=== PATIENT | female | born 1965 | race Hispanic/Latino ===

== ENCOUNTER 2018-07-16 14:45 | Inpatient (IN) | payer OTHER ==
[2018-07-16] MEDS ORDERED: Morphine 4 MG/ML VIAL IVP ONE (15:50)
[2018-07-16] MEDS ORDERED: Morphine 4 MG/ML VIAL ONE (16:09)
[2018-07-16 16:18] LABS: BASO % 0.6 % (0.0-2.0); EOS # 0.1 K/uL (0.0-0.7); EOS % 1.1 % (0.0-4.0); HEMOGLOBIN 14.1 g/dL (12.0-16.0); LYMPH # 1.6 K/uL (1.0-4.3); LYMPH % 22.7 % (20.0-40.0); MEAN CELL VOLUME 83.6 fl (81.0-99.0); MEAN CORPUSCULAR HEMOGLOBIN 28.7 pg (27.0-31.0); MEAN CORPUSCULAR HGB CONC 34.3 g/dL (33.0-37.0); MEAN PLATELET VOLUME 8.7 fl (7.2-11.7); MONO # 0.2 K/uL (0.0-0.8); NEUT % 72.6 % (50.0-75.0); NRBC % 0.1 % (0.0-0.0); RBC 4.93 Mil/uL (3.80-5.20); RED CELL DISTRIBUTION WIDTH 15.4 % (11.5-14.5); WHITE BLOOD COUNT 6.9 K/uL (4.8-10.8)
--- NOTE | 2018-07-16 16:26 | ED PDOC ---
HPI: Back Time Seen by Provider: 07/16/18 15:18 Chief Complaint (Nursing): Back Pain Chief Complaint (Provider): back pain History Per: Patient, Other (friend) History/Exam Limitations: no limitations Additional Complaint(s): 52 y/o F with hx of colon CA with mets to spine, lung, liver and LN on chemo and RT who presents with severe back pain. Pt states that she had her most recent radiation and chemo 5 days ago and had increased pain but then it began to subside. The pain then came back 2 days ago and has worsened since then. She has Morphine 30mg PO that she can take at home every 6hrs but she has not taken anyt varun for pain as she states that it has not helped in the past. Denies fever, chills, urinary or fecal incontinence, weakness or increased numbness in lower extremities. Oncologist: Dr. Ignacio Fairbanks - Past Medical History Reviewed: Historical Data, Nursing Documentation, Vital Signs Vital Signs: Last Vital Signs Temp 98.6 F 07/16/18 14:58 Pulse 96 H 07/16/18 14:58 Resp 19 07/16/18 14:58 BP 112/79 07/16/18 14:58 Pulse Ox 100 07/16/18 14:58 Primary Care Provider: Non [facility] Provider, - Medical History PMH: Diabetes Other PMH: colon Ca with mets to lung, spine, liver, and Lymph nodes. - Surgical History Other surgeries: hepatic artery infusion pump placement - no meds infused yet. Colon Ca resection. KAYLYNN - Family History Family History: States: Unknown Family Hx - Home Medications Home Medications: Ambulatory Orders Medication Instructions Recorded Morphine [Morphine Immediate 30 mg PO Q4 PRN 07/16/18 Release Tab] - Allergies Allergies/Adverse Reactions: Allergies Allergy/AdvReac Type Severity Reaction Status Date / Time oxycodone Allergy RASH Verified 07/16/18 15:01 Review of Systems Constitutional: Negative for: Fever, Chills Musculoskeletal: Positive for: Back Pain Neurological: Negative for: Weakness Physical Exam - Reviewed Nursing Documentation Reviewed: Yes Vital Signs Reviewed: Yes - Physical Exam Appears: Positive for: Uncomfortable (crying in severe pain) Skin: Positive for: Normal Color Cardiovascular/Chest: Positive for: Regular Rate, Rhythm Respiratory: Positive for: Normal Breath Sounds Back: Positive for: Vertebral Tenderness (+ tenderness on palpation of lumbar spine), Decreased ROM (flexion of spine). Negative for: Muscle Spasm Extremity: Positive for: Normal ROM (flexion and extension of B/L ankles and knees) Neurological/Psych: Positive for: Awake, Alert, Symmetric/Intact Strength (in B/L lower extremities against resistance), Oriented. Negative for: Motor/Sensory Deficits (sensation to light touch equal in B/L lower extremities) - Laboratory Results Result Diagrams: 07/16/18 16:10 07/16/18 16:10 - ECG O2 Sat by Pulse Oximetry: 100 Medical Decision Making Medical Decision Making: CBC, CMP Morphine 4mg IV x 1 KUB to assess hepatic pump Patient's oncologist Dr. Ignacio Fairbanks, called at and spoke with her nurse, Jamie who states that would recommend MRI of spine with contrast to evaluate for possible cord compression or worsening metastases after pain is controlled. Case discussed with Dr. Benitez (patient's primary care doctor) re: admission for pain crisis who accepts admission for intractable back pain. He requests pain management consult as well as hematology/oncology consult. MRI spine w/ contrast ordered. Patient has hepatic artery infusion pump that is ? MRI compatible. MRI cancelled for now and will need to be re-ordered by admitting team tomorrow after discussion with outpatient oncologist as patient without symptoms of cord compression. Dr. Benitez made aware and will contact Dr. Roger Goodson of pain management called and case discussed. He recommends Dilaudid 1mg IV Q4H PRN during admission and one of his colleagues will see patient tomorrow. Dr. Jon Desouza of hematology oncology called and case discussed. He will see patient in AM. Disposition - Clinical Impression Clinical Impression: Intractable back pain - Patient ED Disposition Is Patient to be Admitted: Yes Discussed With : Ward Lim Doctor Will See Patient In The: Hospital - Disposition Disposition: Transfer of Care Disposition Time: 18:07 Condition: IMPROVED
[2018-07-16 16:33] LABS: ALB/GLOB RATIO 1.4 (1.0-2.1); ALBUMIN 4.5 g/dL (3.5-5.0); ALT/SGPT 28 U/L (9-52); AST/SGOT 26 U/L (14-36); BLOOD UREA NITROGEN 9 mg/dl (7-17); CALCIUM 9.7 mg/dL (8.4-10.2); GFR NON-AFRICAN AMERICAN > 60
--- NOTE | 2018-07-16 17:47 | RAD ---
Date of service: 07/16/2018 HISTORY: evaluate hepatic infusion pump COMPARISON: None available. TECHNIQUE: 1 view obtained. FINDINGS: Left-sided hepatic infusion pump is identified with the tip overlying the epigastrium. BOWEL: There is moderate amount of stool in the colon. No obstruction. No free air. BONES: Normal. OTHER FINDINGS: Status post bilateral hip arthroplasties. IMPRESSION: Left-sided hepatic infusion pump is identified with its tip overlying the epigastrium.
--- NOTE | 2018-07-16 17:56 | CP.PCM.CON ---
History of Present Illness - History of Present Illness History of Present Illness: Pt with history of chronic back pain secondary to metastatic colon CA. Recommend Dilaudid 1 mg IV q4 PRN. Dr. Goodson will follow up after lumbar MRI. Past Patient History - Past Social History Smoking Status: Never Smoked - ENDOCRINE/METABOLIC Hx Diabetes Mellitus Type 2: Yes - GASTROINTESTINAL Other/Comment: Colon Cancer dx 2011. - PSYCHIATRIC Hx Substance Use: No - SURGICAL HISTORY Other/Comment: Surgery for Colon, Spine, and Liver Cancer. - ANESTHESIA Hx Anesthesia: Yes Meds Allergies/Adverse Reactions: Allergies Allergy/AdvReac Type Severity Reaction Status Date / Time oxycodone Allergy RASH Verified 07/16/18 15:01 Results - Vital Signs Recent Vital Signs: Last Vital Signs Temp 98.6 F 07/16/18 14:58 Pulse 96 H 07/16/18 14:58 Resp 19 07/16/18 14:58 BP 112/79 07/16/18 14:58 Pulse Ox 100 07/16/18 16:41 - Labs Result Diagrams: 07/16/18 16:10 07/16/18 16:10 Labs: Laboratory Results - last 24 hr 07/16/18 07/16/18 16:10 16:10 WBC 6.9 RBC 4.93 Hgb 14.1 Hct 41.2 MCV 83.6 MCH 28.7 MCHC 34.3 RDW 15.4 H Plt Count 255 MPV 8.7 Neut % (Auto) 72.6 Lymph % (Auto) 22.7 Donley % (Auto) 3.0 Eos % (Auto) 1.1 Baso % (Auto) 0.6 Neut # (Auto) 5.0 Lymph # (Auto) 1.6 Donley # (Auto) 0.2 Eos # (Auto) 0.1 Baso # (Auto) 0.0 Sodium 138 Potassium 3.9 Chloride 101 Carbon Dioxide 20 L Anion Gap 21 H BUN 9 Creatinine 0.4 L Est GFR ( Amer) > 60 Est GFR (Non-Af Amer) > 60 Random Glucose 157 H Calcium 9.7 Total Bilirubin 1.3 AST 26 ALT 28 Alkaline Phosphatase 82 Total Protein 7.8 Albumin 4.5 Globulin 3.3 Albumin/Globulin Ratio 1.4
--- NOTE | 2018-07-16 20:23 | CP.PCM.PN ---
Subjective - Date & Time of Evaluation Date of Evaluation: 07/16/18 Time of Evaluation: 22:22 - Subjective Subjective: 52 yo presents to the ER for back pain Objective - Vital Signs/Intake and Output Vital Signs (last 24 hours): Temp Pulse Resp BP Pulse Ox 98.2 F 75 14 130/68 97 07/16/18 18:57 07/16/18 18:57 07/16/18 18:57 07/16/18 18:57 07/16/18 18:57 - Labs Labs: 07/16/18 16:10 07/16/18 16:10 - Respiratory Exam Respiratory Exam: NORMAL BREATHING PATTERN - Cardiovascular Exam Cardiovascular Exam: REGULAR RHYTHM - GI/Abdominal Exam GI & Abdominal Exam: Normal Bowel Sounds Assessment and Plan - Assessment and Plan (Free Text) Assessment: Ca Colon with metastatiic dx Intractable Back pain
[2018-07-16] MEDS ORDERED: HYDROmorphone 1 mg/ml ISec IVP PRN (23:18)
[2018-07-17] MEDS ORDERED: HYDROmorphone 0.5 mg/0.5 ml ISec IVP PRN (01:15)
[2018-07-17] MEDS ORDERED: Enoxaparin 30 mg Syringe SC SCH (09:00)
[2018-07-17] MEDS: Pantoprazole 40 mg EC Tab PO SCH (14:33)
[2018-07-17] MEDS: Enoxaparin 40 mg Syringe SC SCH ×2 (14:33→14:39)
[2018-07-17] MEDS ORDERED: Gadodiamide 287 MG/ML VIAL (15ML) IV ONE (16:11)
--- NOTE | 2018-07-17 20:16 | CP.PCM.CON ---
History of Present Illness - History of Present Illness History of Present Illness: 52 year old female with a history of stage IV colon cancer dx 2011 on systemic therapy at [facility], presenting with intractable lower back pain. The patient notes to progressive back pain since Saturday. She denies lower extremity weakness and urinary/bowel incontinence. Her home regimen of pain medication failed to help her pain and she came to the ER. She notes to palliative radiotherapy to the spine which improved her bone pain in May. She recently restarted chemotherapy and is due to redosing in 1 week. Past medical history: Stage IV colon cancer - liver, bone, lung metastasis Past surgical history: bowel surgery, ?liver resection, portacath Family history: Denies hematologic and oncologic problems Social history: Denies tobacco, alcohol, and illicit drug use. Allergies: Oxycodone Review of systems: All remaining review of systems including HEENT, cardiovascular, respiratory, gastrointestinal, genitourinary, musculoskeletal, dermatologic, neurologic, and psychiatric are negative unless mentioned in the H PI. Past Patient History - Past Medical History & Family History Past Medical History?: Yes - Past Social History Smoking Status: Light Smoker < 10 Cigarettes Daily - CARDIAC Hx Cardiac Disorders: No - PULMONARY Hx Respiratory Disorders: No - NEUROLOGICAL Hx Neurological Disorder: No - HEENT Hx HEENT Problems: No - RENAL Hx Chronic Kidney Disease: No - ENDOCRINE/METABOLIC Hx Endocrine Disorders: Yes Hx Diabetes Mellitus Type 2: Yes - HEMATOLOGICAL/ONCOLOGICAL Hx Blood Disorders: Yes Hx Cancer: Yes Hx Chemotherapy: Yes Hx Metastesis: Yes (Lungs, Spine, Liver) - INTEGUMENTARY Hx Dermatological Problems: No - MUSCULOSKELETAL/RHEUMATOLOGICAL Hx Musculoskeletal Disorders: No Hx Falls: No - GASTROINTESTINAL Hx Gastrointestinal Disorders: No Other/Comment: Colon Cancer dx 2011. - GENITOURINARY/GYNECOLOGICAL Hx Genitourinary Disorders: No - PSYCHIATRIC Hx Psychophysiologic Disorder: No Hx Substance Use: No - SURGICAL HISTORY Hx Hysterectomy: Yes Hx Orthopedic Surgery: Yes (Bilateral Hip Replacement) Other/Comment: Surgery for Colon, Spine, and Liver Cancer. - ANESTHESIA Hx Anesthesia: Yes Hx Anesthesia Reactions: No Hx Malignant Hyperthermia: No Has any member of the family had a problem w/ anesthesia?: No Meds Allergies/Adverse Reactions: Allergies Allergy/AdvReac Type Severity Reaction Status Date / Time oxycodone Allergy RASH Verified 07/16/18 15:01 - Medications Medications: Current Medications Acetaminophen (Tylenol 325mg Tab) 650 mg PO Q4 PRN PRN Reason: Pain, Mild (1-3) Hydromorphone HCl (Dilaudid) 1 mg IVP Q4 PRN PRN Reason: Pain, severe (8-10) Ondansetron HCl (Zofran Inj) 4 mg IVP Q6 PRN PRN Reason: Nausea/Vomiting Last Admin: 07/17/18 15:48 Dose: 4 mg Pantoprazole Sodium (Protonix Ec Tab) 40 mg PO DAILY MARK Last Admin: 07/17/18 14:33 Dose: 40 mg Physical Exam - Head Exam Head Exam: ATRAUMATIC - Eye Exam Eye Exam: Normal appearance - ENT Exam ENT Exam: Mucous Membranes Dry - Respiratory Exam Respiratory Exam: NORMAL BREATHING PATTERN - Cardiovascular Exam Cardiovascular Exam: +S1, +S2 - GI/Abdominal Exam GI & Abdominal Exam: Normal Bowel Sounds - Extremities Exam Extremities exam: Positive for: normal inspection - Neurological Exam Neurological exam: Oriented x3 - Psychiatric Exam Psychiatric exam: Normal Affect, Normal Mood - Skin Skin Exam: Warm Results - Vital Signs Recent Vital Signs: Last Vital Signs Temp 97.6 F 07/17/18 16:02 Pulse 89 07/17/18 16:02 Resp 18 07/17/18 16:02 BP 116/78 07/17/18 16:02 Pulse Ox 94 L 07/17/18 16:02 - Labs Result Diagrams: 07/16/18 16:10 07/16/18 16:10 Assessment & Plan (1) Intractable back pain Assessment and Plan: agree with MRI spine to rule out cord compression and progressive ashleigh disease pain management evaluation dilaudid PRN Status: Acute (2) Colon cancer Assessment and Plan: stage IV liver, lung, bone metastasis outpatient treatment with primary oncologist at [facility] Thank you for this interest consult. Status: Acute
--- NOTE | 2018-07-17 20:47 | CP.PCM.HP ---
History of Present Illness - History of Present Illness History of Present Illness: 52 yo admitted for back pain Multiple calls to staff and extended conversations Present on Admission - Present on Admission Any Indicators Present on Admission: No Past Patient History - Past Medical History & Family History Past Medical History?: Yes - Past Social History Smoking Status: Light Smoker < 10 Cigarettes Daily - CARDIAC Hx Cardiac Disorders: No - PULMONARY Hx Respiratory Disorders: No - NEUROLOGICAL Hx Neurological Disorder: No - HEENT Hx HEENT Problems: No - RENAL Hx Chronic Kidney Disease: No - ENDOCRINE/METABOLIC Hx Endocrine Disorders: Yes Hx Diabetes Mellitus Type 2: Yes - HEMATOLOGICAL/ONCOLOGICAL Hx Blood Disorders: Yes Hx Cancer: Yes Hx Chemotherapy: Yes Hx Metastesis: Yes (Lungs, Spine, Liver) - INTEGUMENTARY Hx Dermatological Problems: No - MUSCULOSKELETAL/RHEUMATOLOGICAL Hx Musculoskeletal Disorders: No Hx Falls: No - GASTROINTESTINAL Hx Gastrointestinal Disorders: No Other/Comment: Colon Cancer dx 2011. - GENITOURINARY/GYNECOLOGICAL Hx Genitourinary Disorders: No - PSYCHIATRIC Hx Psychophysiologic Disorder: No Hx Substance Use: No - SURGICAL HISTORY Hx Hysterectomy: Yes Hx Orthopedic Surgery: Yes (Bilateral Hip Replacement) Other/Comment: Surgery for Colon, Spine, and Liver Cancer. - ANESTHESIA Hx Anesthesia: Yes Hx Anesthesia Reactions: No Hx Malignant Hyperthermia: No Has any member of the family had a problem w/ anesthesia?: No Meds Allergies/Adverse Reactions: Allergies Allergy/AdvReac Type Severity Reaction Status Date / Time oxycodone Allergy RASH Verified 07/16/18 15:01 Physical Exam - Respiratory Exam Respiratory Exam: NORMAL BREATHING PATTERN - Cardiovascular Exam Cardiovascular Exam: REGULAR RHYTHM - GI/Abdominal Exam GI & Abdominal Exam: Normal Bowel Sounds Results - Vital Signs Recent Vital Signs: Last Vital Signs Temp 97.6 F 07/17/18 16:02 Pulse 89 07/17/18 16:02 Resp 18 07/17/18 16:02 BP 116/78 07/17/18 16:02 Pulse Ox 94 L 07/17/18 16:02 - Labs Result Diagrams: 07/16/18 16:10 07/16/18 16:10 Assessment & Plan - Assessment and Plan (Free Text) Assessment: Ca Colon with metastatiic dx Intractable Back pain Pain management Oncology Dilaudid MRI - Date & Time Date: 07/17/18 Time: 22:22
[2018-07-18] MEDS: HYDROmorphone 0.5 mg/0.5 ml ISec IVP PRN ×3 (00:40→22:36)
[2018-07-18 06:32] LABS: BASO % 0.7 % (0.0-2.0); EOS # 0.1 K/uL (0.0-0.7); EOS % 3.4 % (0.0-4.0); HEMOGLOBIN 12.3 g/dL (12.0-16.0); INR 1.2; LYMPH # 1.2 K/uL (1.0-4.3); MEAN CELL VOLUME 83.2 fl (81.0-99.0); MEAN CORPUSCULAR HEMOGLOBIN 28.7 pg (27.0-31.0); MEAN CORPUSCULAR HGB CONC 34.5 g/dL (33.0-37.0); MEAN PLATELET VOLUME 8.5 fl (7.2-11.7); MONO # 0.3 K/uL (0.0-0.8); MONO % 7.6 % (0.0-10.0); NEUT # 1.7 K/uL (1.8-7.0); NEUT % 51.3 % (50.0-75.0); NRBC % 0.4 % (0.0-0.0); PROTHROMBIN TIME 13.5 Seconds (9.8-13.1); RBC 4.27 Mil/uL (3.80-5.20); WHITE BLOOD COUNT 3.4 K/uL (4.8-10.8)
--- NOTE | 2018-07-18 08:19 | CP.PCM.PN ---
Subjective - Date & Time of Evaluation Date of Evaluation: 07/18/18 Time of Evaluation: 07:30 - Subjective Subjective: Patient presents with acute on chronic lower back pain from metastatic colon cancer, s/p radiation 2 months ago, is referred for pain management. MSIR 30mg wasn't helping when the pain flared up one week ago. The pain had previously be en radicular but now is only axial, across the bilateral paraspinal regions and around L4, L5 regions. There are skin changes in the low thoracic and upper lumbar regions, likely from RT, but pain is not in that area. Patient does have neuropathy in the feet from several years ago but doesn't really bother her that much. Dilaudid 2mg PO didn't help while 1mg IV was effective. She states she has a list of pain medications she's allergic to and will try to have her physician fax it. She was supposed to have while thoracic and lumbar MRI but could only tolerate cervical MRI. Objective - Vital Signs/Intake and Output Vital Signs (last 24 hours): Temp Pulse Resp BP Pulse Ox 98.1 F 65 18 114/75 95 07/18/18 07:51 07/18/18 07:51 07/18/18 07:51 07/18/18 07:51 07/18/18 07:51 - Medications Medications: Current Medications Acetaminophen (Tylenol 325mg Tab) 650 mg PO Q4 PRN PRN Reason: Pain, Mild (1-3) Hydromorphone HCl (Dilaudid) 1 mg IVP Q4 PRN PRN Reason: Pain, severe (8-10) Last Admin: 07/18/18 00:40 Dose: 1 mg Ondansetron HCl (Zofran Inj) 4 mg IVP Q6 PRN PRN Reason: Nausea/Vomiting Last Admin: 07/17/18 15:48 Dose: 4 mg Pantoprazole Sodium (Protonix Ec Tab) 40 mg PO DAILY MARK Last Admin: 07/17/18 14:33 Dose: 40 mg Pregabalin (Lyrica) 50 mg PO BID MARK - Labs Labs: 07/18/18 05:40 07/16/18 16:10 PT 13.5 Seconds (9.8-13.1) H 07/18/18 05:40 INR 1.2 07/18/18 05:40 APTT 29.0 Seconds (25.6-37.1) 07/18/18 05:40 - Back Exam Back Exam: paraspinal tenderness, vertebral tenderness Assessment and Plan - Assessment and Plan (Free Text) Assessment: 52 yo woman w/ metastatic colon cancer to the spine. Awaiting MRI for the lumbar and thoracic spine. Pain is mainly in the low lumbar spine. Potential injection will have to wait until Saturday. Will try to titrate regimen so she could potentially go home with follow-up with her outside pain physician. - d/c Morphine IR, start Dilaudid 4mg PO - continue Dilaudid IV while patient is hospitalized - add Lyrica to regimen for neuropathic component - f/u lumbar MRI - patient can be discharged on Dilaudid 4mg PO, will consider long acting agent once her list of allergy is available - no injection planned for now
[2018-07-18] MEDS: Pantoprazole 40 mg EC Tab PO SCH (08:37)
[2018-07-18] MEDS ORDERED: Gadodiamide 287 MG/ML VIAL (15ML) IV ONE (09:39)
[2018-07-18] MEDS: Enoxaparin 40 mg Syringe SC SCH ×2 (12:04→16:40)
--- NOTE | 2018-07-18 13:38 | MRI ---
Date of service: 07/17/2018 PROCEDURE: MR CERVICAL SPINE WITHOUT CONTRAST HISTORY: Evaluate for cord compression and mets COMPARISON: None available. TECHNIQUE: Multiecho multiplanar sequences were performed through the cervical spine without the use of intravenous contrast. FINDINGS: Straightened cervical curvature. No fracture or spondylolisthesis. Craniocervical junction unremarkable. Vertebral body heights preserved. There is disc desiccation is appreciated throughout the cervical spine. Incidental T1 benign hemangioma with degenerative endplate changes identified at C4-5 and C6-7. Normal cervical cord. No paraspinal abnormality. Incidental note is made of well-circumscribed abnormality at the right lobe thyroid gland, measuring 2.4 x 2.8 x 3.4 cm, suggestive of complex solid mass for which follow-up thyroid ultrasound is advised. C2-C3: No disc herniation, spinal canal stenosis or neural foraminal narrowing. C3-C4: No disc herniation, spinal canal stenosis or neural foraminal narrowing. C4-C5: No disc herniation, spinal canal stenosis or neural foraminal narrowing. Limited disc bulging abuts the ventral cord either impinging or encroaching ventral nerve roots. Tiny annular tear identified. C5-C6: No disc herniation, spinal canal stenosis or neural foraminal narrowing. Limited disc bulging abuts the ventral cord impinging or encroaching ventral nerve roots. Small bilateral Tarlov cysts are identified within the neural foramina. C6-C7: No disc herniation, spinal canal stenosis or neural foraminal narrowing. Posterior disc bulge encroaches or impinges ventral nerve roots. Small bilateral Tarlov cysts are identified within the neural foramina. C7-T1: No disc herniation, spinal canal stenosis or neural foraminal narrowing. OTHER FINDINGS: None. IMPRESSION: Straightened cervical curvature without fracture or spondylolisthesis evident. Multilevel cervical disc bulges are identified at mid and inferior levels which encroach or impinge ventral nerve roots without significant central stenosis resulting. Benign hemangioma T1 vertebral body. 2.4 x 2.8 x 3.4 cm right lobe thyroid complex mass for which follow-up thyroid ultrasound is advised for added characterization.
--- NOTE | 2018-07-18 13:42 | MRI ---
Date of service: 07/18/2018 PROCEDURE: CERVICAL SPINE MRI WITH CONTRAST HISTORY: back pain, ca with mets COMPARISON: Preliminary cervical spine MRI without 07/18/2018. TECHNIQUE: Following intravenous administration of 10 cc of Omniscan, post gadolinium-enhanced fat-suppressed T1 weighted imaging was acquired in sagittal and axial acquisitions. FINDINGS: Normal cervical cord with no abnormal enhancement related. No abnormal intrathecal or epidural enhancement. Incidental heterogeneous enhancement and a mass at the right lobe thyroid gland for which thyroid ultrasound is advised. Enlarged lymph node is question at the right thoracic inlet measuring 2.5 cm greatest dimension. IMPRESSION: Straightened curvature reiterated. No abnormal intrathecal or epidural enhancement. Normal cervical spinal cord overall. Right thyroid lobe mass and lymphadenopathy suggests at the right thoracic inlet. Thyroid ultrasound is recommended for follow-up as well as follow-up neck or chest CT for added characterization of the thoracic inlet.
--- NOTE | 2018-07-18 14:05 | MRI ---
Date of service: 07/18/2018 PROCEDURE: MR LUMBAR SPINE WITH AND WITHOUT CONTRAST HISTORY: Evaluated for cord compression and mets COMPARISON: None available. TECHNIQUE: Multiecho multiplanar sequences were performed through the lumbar spine with and without the use of intravenous contrast. Dose given is documented in cervical spine report with contrast. FINDINGS: Normal lumbar lordosis. Anterior wedge compression fractures are identified at L2 and L3 and minimally at L1 as well which exhibit prevertebral edema without definite abscess. There is a sharp demarcation between low signal intensity which appears rounded in shape posteriorly at the anterior half of the L2 vertebral body and more fatty appearing Marrow at the posterior margins of L2 on T1 weighting. Similar changes are present at the L1 vertebral body inferiorly in a more central location. The pattern of the intervertebral disc is not 1 to suggest fluid collection or discitis and the endplates appear intact overall. Following intravenous gadolinium striation, heterogeneous enhancement is seen at the L1 and L2 vertebral bodies with endplate enhancement at the upper portion of L3. Pathological fractures of L2 and L3 are felt to be present as well as at L1. Conus medullaris unremarkable at the level of the T12 inferior endplate. No abnormal intrathecal or epidural enhancement. T12-L1: No disc herniation, spinal canal stenosis or neural foraminal narrowing. L1-2: No significant stenosis of central canal or neural foramina. Minimal right paracentral extruded disc protrusion overlying minimal disc bulge.. L2-3: A small left paracentral disc protrusion is identified causing left lateral recess stenosis with the central canal nevertheless adequately patent otherwise. No neural foraminal stenosis bilaterally. No large disc herniation. L3-4: No disc herniation, spinal canal stenosis or neural foraminal narrowing. L4-5: No disc herniation. Small posterior disc bulge is appreciate with associated annular tear inverting the ventral thecal sac. Facet arthropathy combines to cause mild bilateral lateral recess stenosis and borderline generalized central canal stenosis. L5-S1: No disc herniation, central canal or neural foraminal stenosis. Limited generalized disc bulge is seen posteriorly occurs at the inferior bilateral neural foraminal spaces minimally. OTHER FINDINGS: None. IMPRESSION: 1. Is most compatible with mild anterior wedge compression fracture of L2 and L3 with associated metastatic signal changes and enhancement, particularly at L2 with lesser similar changes present at L1. Mild prevertebral edema is appreciated. 2. Although lateral recesses are encroached deep on a degenerative basis bilaterally at L4-5 and at the left at L2-3 due to a small left paracentral protrusion, only a borderline generalized central stenosis seen at L4-5. No moderate or high-grade stenoses throughout the lumbar spine. 3. No abnormal epidural or intrathecal enhancement.
--- NOTE | 2018-07-18 14:34 | MRI ---
Date of service: 07/18/2018 PROCEDURE: MR THORACIC SPINE WITH AND WITHOUT CONTRAST HISTORY: Evaluate for cord compression and mets COMPARISON: None available. TECHNIQUE: Multiecho multiplanar sequences were performed through the thoracic spine with and without the use of intravenous contrast. Contrast dose administered documented in cervical spine with contrast MRI report 07/18/2018. FINDINGS: ALIGNMENT: Straightened thoracic alignment. No spondylolisthesis. VERTEBRA: Vertebral body height are preserved. Incidental mild compression fracture L1 vertebral body. MARROW: Benign hemangioma is identified at the T1 vertebral body with remaining marrow signal unremarkable. PARASPINAL SOFT TISSUES: Unremarkable throughout thoracic spine. Incidental note is made of a thyroid mass at the right side at the inferior cervical spine level. CORD: Unremarkable thoracic cord. No volume loss, signal abnormality or syrinx. Conus medullaris appears normal terminating at inferior endplate of T12. DISCS: No disc herniation, spinal canal stenosis, or neuroforaminal narrowing. ENHANCEMENT: No abnormal epidural or intrathecal enhancement throughout the thoracic spine. Enhancement. OTHER FINDINGS: None. IMPRESSION: Unremarkable pre and post contrast enhanced MRI of the thoracic spine. Incidental right lobe thyroid mass and compression fracture L1.
--- NOTE | 2018-07-18 19:00 | CP.PCM.PN ---
Subjective - Date & Time of Evaluation Date of Evaluation: 07/18/18 Time of Evaluation: 22:22 - Subjective Subjective: Compression fx L2 L3 Objective - Vital Signs/Intake and Output Vital Signs (last 24 hours): Temp Pulse Resp BP Pulse Ox 98.4 F 68 18 108/70 97 07/18/18 16:21 07/18/18 16:21 07/18/18 16:21 07/18/18 16:21 07/18/18 16:21 - Medications Medications: Current Medications Acetaminophen (Tylenol 325mg Tab) 650 mg PO Q4 PRN PRN Reason: Pain, Mild (1-3) Enoxaparin Sodium (Lovenox) 40 mg SC DAILY [facility]; Protocol Last Admin: 07/18/18 16:40 Dose: Not Given Hydromorphone HCl (Dilaudid) 1 mg IVP Q4 PRN PRN Reason: Pain, severe (8-10) Last Admin: 07/18/18 09:15 Dose: 1 mg Hydromorphone HCl (Dilaudid) 4 mg PO Q4 PRN PRN Reason: Pain, moderate (4-7) Ondansetron HCl (Zofran Inj) 4 mg IVP Q6 PRN PRN Reason: Nausea/Vomiting Last Admin: 07/17/18 15:48 Dose: 4 mg Pantoprazole Sodium (Protonix Ec Tab) 40 mg PO DAILY [facility] Last Admin: 07/18/18 08:37 Dose: 40 mg Pregabalin (Lyrica) 50 mg PO BID [facility] Last Admin: 07/18/18 08:37 Dose: 50 mg - Labs Labs: 07/18/18 05:40 07/16/18 16:10 PT 13.5 Seconds (9.8-13.1) H 07/18/18 05:40 INR 1.2 07/18/18 05:40 APTT 29.0 Seconds (25.6-37.1) 07/18/18 05:40 - Respiratory Exam Respiratory Exam: NORMAL BREATHING PATTERN - Cardiovascular Exam Cardiovascular Exam: REGULAR RHYTHM - GI/Abdominal Exam GI & Abdominal Exam: Normal Bowel Sounds Assessment and Plan - Assessment and Plan (Free Text) Assessment: Ca Colon with metastatiic dx L-S area Intractable Back pain MRI compression fx L2 L3 Pain management Oncology Dilaudid Neurosurgery
--- NOTE | 2018-07-18 21:52 | CP.PCM.PN ---
Subjective - Date & Time of Evaluation Date of Evaluation: 07/18/18 Time of Evaluation: 19:00 - Subjective Subjective: Has back pain. Objective - Vital Signs/Intake and Output Vital Signs (last 24 hours): Temp Pulse Resp BP Pulse Ox 98.4 F 68 18 108/70 97 07/18/18 16:21 07/18/18 16:21 07/18/18 16:21 07/18/18 16:21 07/18/18 16:21 - Medications Medications: Current Medications Acetaminophen (Tylenol 325mg Tab) 650 mg PO Q4 PRN PRN Reason: Pain, Mild (1-3) Enoxaparin Sodium (Lovenox) 40 mg SC DAILY [facility]; Protocol Last Admin: 07/18/18 16:40 Dose: Not Given Hydromorphone HCl (Dilaudid) 1 mg IVP Q4 PRN PRN Reason: Pain, severe (8-10) Last Admin: 07/18/18 09:15 Dose: 1 mg Hydromorphone HCl (Dilaudid) 4 mg PO Q4 PRN PRN Reason: Pain, moderate (4-7) Ondansetron HCl (Zofran Inj) 4 mg IVP Q6 PRN PRN Reason: Nausea/Vomiting Last Admin: 07/17/18 15:48 Dose: 4 mg Pantoprazole Sodium (Protonix Ec Tab) 40 mg PO DAILY [facility] Last Admin: 07/18/18 08:37 Dose: 40 mg Pregabalin (Lyrica) 50 mg PO BID [facility] Last Admin: 07/18/18 08:37 Dose: 50 mg - Labs Labs: 07/18/18 05:40 07/16/18 16:10 PT 13.5 Seconds (9.8-13.1) H 07/18/18 05:40 INR 1.2 07/18/18 05:40 APTT 29.0 Seconds (25.6-37.1) 07/18/18 05:40 - Head Exam Head Exam: ATRAUMATIC - Eye Exam Eye Exam: Normal appearance - ENT Exam ENT Exam: Mucous Membranes Dry - Respiratory Exam Respiratory Exam: NORMAL BREATHING PATTERN - Cardiovascular Exam Cardiovascular Exam: +S1, +S2 - GI/Abdominal Exam GI & Abdominal Exam: Normal Bowel Sounds Assessment and Plan (1) Intractable back pain Assessment & Plan: L-spine compression fractures noted - secondary to metastatic malignancy no overt evidence of cord involvement neurosurgical evaluation outpatient palliative radiotherapy +/- kyphoplasty by primary oncology team Status: Acute (2) Colon cancer Assessment & Plan: stage IV liver, lung, bone mets palliative radiotherapy systemic therapy with primary oncologist at [facility] [place] Status: Acute
--- NOTE | 2018-07-19 06:14 | CP.PCM.PN ---
Subjective - Date & Time of Evaluation Date of Evaluation: 07/19/18 Time of Evaluation: 22:22 - Subjective Subjective: Hematology consult appreciated Objective - Vital Signs/Intake and Output Vital Signs (last 24 hours): Temp Pulse Resp BP Pulse Ox 98 F 64 19 103/62 96 07/19/18 00:12 07/19/18 00:12 07/19/18 00:12 07/19/18 00:12 07/19/18 00:12 - Medications Medications: Current Medications Acetaminophen (Tylenol 325mg Tab) 650 mg PO Q4 PRN PRN Reason: Pain, Mild (1-3) Docusate Sodium (Colace) 100 mg PO DAILY [facility] Enoxaparin Sodium (Lovenox) 40 mg SC DAILY [facility]; Protocol Last Admin: 07/18/18 16:40 Dose: Not Given Hydromorphone HCl (Dilaudid) 1 mg IVP Q4 PRN PRN Reason: Pain, severe (8-10) Last Admin: 07/18/18 22:36 Dose: 1 mg Hydromorphone HCl (Dilaudid) 4 mg PO Q4 PRN PRN Reason: Pain, moderate (4-7) Last Admin: 07/19/18 06:03 Dose: 4 mg Ondansetron HCl (Zofran Inj) 4 mg IVP Q6 PRN PRN Reason: Nausea/Vomiting Last Admin: 07/17/18 15:48 Dose: 4 mg Pantoprazole Sodium (Protonix Ec Tab) 40 mg PO DAILY [facility] Last Admin: 07/18/18 08:37 Dose: 40 mg Pregabalin (Lyrica) 50 mg PO BID [facility] Last Admin: 07/18/18 08:37 Dose: 50 mg - Labs Labs: 07/18/18 05:40 07/16/18 16:10 PT 13.5 Seconds (9.8-13.1) H 07/18/18 05:40 INR 1.2 07/18/18 05:40 APTT 29.0 Seconds (25.6-37.1) 07/18/18 05:40 - Respiratory Exam Respiratory Exam: NORMAL BREATHING PATTERN - Cardiovascular Exam Cardiovascular Exam: REGULAR RHYTHM - GI/Abdominal Exam GI & Abdominal Exam: Normal Bowel Sounds Assessment and Plan - Assessment and Plan (Free Text) Assessment: Ca Colon with metastatiic dx L-S area Intractable Back pain MRI compression fx L2 L3 Pain management Oncology Dilaudid Neurosurgery
[2018-07-19 08:12] VITALS: BP 98/62; PULSE 65; RESP 20; TEMP 97.6; O2SAT 97
[2018-07-19] MEDS: Enoxaparin 40 mg Syringe SC SCH ×2 (10:40→12:19)
[2018-07-19] MEDS: Pantoprazole 40 mg EC Tab PO SCH (10:41)
--- NOTE | 2018-07-19 13:29 | CP.PCM.PCO ---
Physician Communication Note - Physician Communication Note Physician Communication Note: Dr Lim unable to get here before pt is d/c. Req. Rx for Dilaudid& Lyrica
--- NOTE | 2018-07-21 11:59 | CON ---
DATE: 07/19/2018 REASON FOR CONSULTATION: Severe back pain. HISTORY OF PRESENT ILLNESS: The patient is a 52-year-old young woman who is being treated at [facility] for metastatic colon cancer. She had been receiving radiation treatments to her back, she states, since April and May. She is staying a little better. She states there was a little pain, but nothing she could not handle, but this past Saturday with no antecedent trauma, the pain became much more severe. By Saturday, she just could not deal with it and came to the hospital. She had a CAT scan and MRI, which demonstrate pathologic compression fractures of L2 and L3. She denies any radicular complaints. Her pain medicine has been adjusted and she received 4 mg of Dilaudid this morning and states that it lasted a good 5 hours and she is feeling much better. She is here pending discharge and she is scheduled to receive her next dose of chemotherapy at [facility] next Saturday, but intends on calling her oncologist first thing on Saturday. PAST MEDICAL HISTORY: Significant for the colon cancers as mentioned. She is known to have mets to her lungs and liver as well as the spine. She was diagnosed in 2011. ALLERGIES: SHE IS ALLERGIC TO OXYCODONE IT GIVES HER A RASH. PAST SURGICAL HISTORY: She had bilateral hip replacements in the past as well as a hysterectomy. SOCIAL HISTORY: She states she is a light smoker, less than half a pack a day. PHYSICAL EXAMINATION: EXTREMITIES: On examination, she was complaining of a little tenderness to palpation in mid lumbar region. She moves both lower extremities fully and actively. She has excellent strength throughout. Sensation is intact to light touch. Again, her MRI was reviewed as well as the radiologist report and it shows there appears to be pathologic compression fractures at mostly L2 with perhaps a little crack on the top of L1 and the superior endplate of L3. She may have a little lessening of her lumbar lordosis and that she looks like she is going into little kyphos at that level. No obvious pathologic lesions are noted in the cervical or thoracic MRIs that were done as well. IMPRESSION: Pathologic compression fractures and it will be worthwhile to place her on something like a night brace so that when she is up and around, she still can just keep her upright and give her some support as well as a reminder of not to be doing any forward bending and certainly no heavy lifting. We discussed possibility of kyphoplasty, although, again this latest pain medicine regimen seems to be helping her significantly more so. I think that is something best discussed with her oncologist when she goes to [facility] this week. I will give her the prescription for the brace, but she is anxious to leave today and there is no real reason why as long as she is comfortable, she cannot be discharged to follow up with her own doctors. Thank you for allowing me to participate in the care of your patient. Marlo Frost MD
== END 2018-07-19 16:28 | disposition home or self-care (01) | DRG 375 ==
LOC: H.ER 14:45 → H.ERHOLD 18:07 → H.MEDSURG1 21:11 → OBSVTOIN 07-18 19:15
PROVIDERS: ADMIT Family Medicine Geriatric Medicine; ATTEND Family Medicine Geriatric Medicine
DX: C18.9 Malignant neoplasm of colon, unspecified (principal); C78.00 Secondary malignant neoplasm of unspecified lung; C78.7 Secondary malignant neoplasm of liver and intrahepatic bile duct; C79.51 Secondary malignant neoplasm of bone; M48.56XA Collapsed vertebra, not elsewhere classified, lumbar region, initial encounter for fracture; E11.9 Type 2 diabetes mellitus without complications; F17.210 Nicotine dependence, cigarettes, uncomplicated; G89.3 Neoplasm related pain (acute) (chronic); Z92.3 Personal history of irradiation; Z96.643 Presence of artificial hip joint, bilateral; G62.9 Polyneuropathy, unspecified; Z88.4 Allergy status to anesthetic agent